=== PATIENT | female | born 1950 | race Caucasian/White ===

== ENCOUNTER → 2016-07-24 | Outpatient (CLI) | payer OTHER ==
--- NOTE | 2016-07-24 14:03 | MA ---
Screening Digital Mammogram With iCAD Analysis Clinical Indications: Routine screening. The patient has had a personal history of right breast cance r treated with lumpectomy. Her paternal grandmother was diagnosed with breast cancer in her 50s. Technique: Standard cephalocaudal projections are obtained. Digital breast tomosynthesis was performe d in the MLO projection with reconstruction at 1.0 mm slice thickness and composite MLO views reconst ructed. A skin marker is placed on right breast lumpectomy scar. This examination is processed by the iCAD computer aided detection system. Comparison: July 2015, July 2014, June 2013, May 2012, May 2011, April 2010, Oc tober 2008. Breast density: Type B; Scattered fibroglandular densities. Findings: CAD was reviewed. Asymmetry at the lumpectomy site in the upper anterior right breast is st able. No masses, suspicious calcifications or secondary signs of malignancy are seen. There has been no significant change in the appearance of either breast. Impression: Benign post lumpectomy mammography, BI-RADS 2. Recommendation: Routine mammographic screening in one year as long as physical examination is negativ [facility]. Negative mammography should not preclude additional workup of a clinically suspicious finding. The patient's information is entered into a reminder system with a target due date for her next mammo gram.
== END ==
LOC: FIMAGING 09:44
DX: Z12.31 Encounter for screening mammogram for malignant neoplasm of breast (principal); Z85.3 Personal history of malignant neoplasm of breast; Z80.3 Family history of malignant neoplasm of breast
CPT/HCPCS: G0202

== ENCOUNTER → 2017-09-21 | Outpatient (CLI) | payer OTHER | LOC: FIMAGING 09:17 | PROVIDERS: ATTEND Family Medicine | DX: Z12.31 Encounter for screening mammogram for malignant neoplasm of breast (principal) ==

== ENCOUNTER → 2018-07-26 | Outpatient (CLI) | payer OTHER ==
[~2018-07-26] MED LIST: GADOBUTROL 10 ML VIAL IVP ONE
== END ==
LOC: FIMAGING 12:58
PROVIDERS: ATTEND Physician Assistant Medical
DX: R42 Dizziness and giddiness (principal)
CPT/HCPCS: 70553; A9585; 82565-PO

== ENCOUNTER → 2018-10-25 | Outpatient (CLI) | payer OTHER | LOC: FIMAGING 14:27 | PROVIDERS: ATTEND Family Medicine | DX: Z12.31 Encounter for screening mammogram for malignant neoplasm of breast (principal); Z80.3 Family history of malignant neoplasm of breast ==